=== PATIENT | male | born 1950 | race Caucasian/White ===

== ENCOUNTER → 2017-12-26 | Outpatient (REF) | payer MEDICARE, OTHER ==
[2017-12-26 11:44] LABS: HEMATOCRIT 44.4 % (42.0-52.0); HEMOGLOBIN 14.8 g/dl (13.5-17.5); MEAN CORPUSCULAR HEMOGLOBIN 29.2 pg (27.0-33.0); MEAN CORPUSCULAR HGB CONC 33.3 g/dl (32.0-36.5); MEAN CORPUSCULAR VOLUME 87.6 fl (80.0-96.0); PLATELET COUNT, AUTOMATED 155 10^3/uL (150-450); RED BLOOD COUNT 5.07 10^6/uL (4.30-6.10); RED CELL DISTRIBUTION WIDTH 12.9 % (11.5-14.5); WHITE BLOOD COUNT 8.2 10^3/uL (4.0-10.0)
[2017-12-26 13:06] LABS: ALBUMIN 3.7 GM/DL (3.2-5.2); ALBUMIN/GLOBULIN RATIO 0.93 (1.00-1.93); ALKALINE PHOSPHATASE 125 U/L (45-117); ALT/SGPT 47 U/L (12-78); ANION GAP 10 MEQ/L (8-16); AST/SGOT 64 U/L (7-37); BILIRUBIN,TOTAL 0.5 MG/DL (0.2-1.0); BLOOD UREA NITROGEN 18 MG/DL (7-18); CALCIUM LEVEL 9.2 MG/DL (8.8-10.2); CARBON DIOXIDE LEVEL 28 MEQ/L (21-32); CHLORIDE LEVEL 104 MEQ/L (98-107); CREATININE FOR GFR 1.21 MG/DL (0.70-1.30); GLOMERULAR FILTRATION RATE > 60.0 (>49); GLUCOSE, FASTING 91 MG/DL (70-100); POTASSIUM SERUM 4.1 MEQ/L (3.5-5.1); SODIUM LEVEL 142 MEQ/L (136-145); TOTAL PROTEIN 7.7 GM/DL (6.4-8.2)
[2017-12-26 14:22] LABS: ESTIMATED AVERAGE GLUCOSE 105 MG/DL (60-110); HEMOGLOBIN A1c 5.3 %
== END ==
LOC: M SFHCCLAY 11:36
DX: Q21.1 Atrial septal defect (principal); I48.0 Paroxysmal atrial fibrillation; I83.029 Varicose veins of left lower extremity with ulcer of unspecified site; K76.89 Other specified diseases of liver
CPT/HCPCS: 84443

== ENCOUNTER → 2018-08-08 | Outpatient (REF) | payer MEDICARE, OTHER ==
[2018-08-08 16:40] LABS: HEMATOCRIT 44.4 % (42.0-52.0); HEMOGLOBIN 14.6 g/dl (13.5-17.5); MEAN CORPUSCULAR HEMOGLOBIN 29.5 pg (27.0-33.0); MEAN CORPUSCULAR HGB CONC 32.9 g/dl (32.0-36.5); MEAN CORPUSCULAR VOLUME 89.7 fl (80.0-96.0); PLATELET COUNT, AUTOMATED 155 10^3/uL (150-450); RED BLOOD COUNT 4.95 10^6/uL (4.30-6.10); WHITE BLOOD COUNT 7.4 10^3/uL (4.0-10.0)
[2018-08-08 17:14] LABS: BLOOD UREA NITROGEN 19 MG/DL (7-18); CALCIUM LEVEL 8.8 MG/DL (8.8-10.2); CARBON DIOXIDE LEVEL 32 MEQ/L (21-32); CHLORIDE LEVEL 104 MEQ/L (98-107); CHOLESTEROL LEVEL 140 MG/DL (<200); CHOLESTEROL RISK RATIO 4.242 (<5); CREATININE FOR GFR 1.13 MG/DL (0.70-1.30); FREE T4 1.33 NG/DL (0.76-1.46); GLOMERULAR FILTRATION RATE > 60.0 (>49); GLUCOSE, FASTING 84 MG/DL (70-100); HDL CHOLESTEROL 33 MG/DL (>40); LDL CHOLESTEROL 63 MG/DL (<100); NON-HDL-C 107 MG/DL; POTASSIUM SERUM 3.8 MEQ/L (3.5-5.1); SODIUM LEVEL 144 MEQ/L (136-145); TRIGLYCERIDES LEVEL 220 MG/DL (<150)
== END ==
LOC: M SFHCCLAY 13:34
PROVIDERS: ATTEND Family Medicine
DX: I48.0 Paroxysmal atrial fibrillation (principal); J45.909 Unspecified asthma, uncomplicated; Z98.890 Other specified postprocedural states; K76.89 Other specified diseases of liver; I10 Essential (primary) hypertension; M10.9 Gout, unspecified; I69.30 Unspecified sequelae of cerebral infarction; I87.2 Venous insufficiency (chronic) (peripheral)
CPT/HCPCS: 80048; 80061; 84439; 84443; 85027; G0463

== ENCOUNTER → 2019-01-20 | Outpatient (REF) | payer MEDICARE, OTHER ==
[2019-01-20 20:33] LABS: ALBUMIN 3.5 GM/DL (3.2-5.2); BILIRUBIN,DIRECT 0.1 MG/DL (0.0-0.2); BILIRUBIN,TOTAL 0.4 MG/DL (0.2-1.0); TOTAL PROTEIN 7.3 GM/DL (6.4-8.2)
== END ==
LOC: M SFHCCLAY 12:39
PROVIDERS: ATTEND Family Medicine
DX: K76.89 Other specified diseases of liver (principal); I48.0 Paroxysmal atrial fibrillation; Z12.5 Encounter for screening for malignant neoplasm of prostate
CPT/HCPCS: 80076; 90670; G0009; G0103

== ENCOUNTER → 2020-01-21 | Outpatient (REF) | payer MEDICARE, OTHER ==
[~2020-01-21] MED LIST: ALFU10TA3 PO; ALLO100T PO; ASPI81CH33 PO; ASPI81TA26 PO; BISO5TAB14 PO; ELIQ5TAB PO; FELO10TA28 PO; HYDR25TAB PO; LEVO750T13 PO; LEXA1TAB PO; OMEP-218 PO; SIMV20TA22 PO; SYMB16INH INH; VESI5TAB2 PO; [UNRECOGNIZED DRUG - CODE] PO
[2020-01-21 18:58] LABS: HEMATOCRIT 44.1 % (42.0-52.0); HEMOGLOBIN 13.9 g/dl (13.5-17.5); MEAN CORPUSCULAR HEMOGLOBIN 27.5 pg (27.0-33.0); MEAN CORPUSCULAR HGB CONC 31.5 g/dl (32.0-36.5); MEAN CORPUSCULAR VOLUME 87.3 fl (80.0-96.0); PLATELET COUNT, AUTOMATED 177 10^3/uL (150-450); RED BLOOD COUNT 5.05 10^6/uL (4.30-6.10)
[2020-01-21 19:09] LABS: ALBUMIN 3.5 GM/DL (3.2-5.2); ALT/SGPT 37 U/L (12-78); BILIRUBIN,TOTAL 0.5 MG/DL (0.2-1.0); BLOOD UREA NITROGEN 16 MG/DL (7-18); CALCIUM LEVEL 8.5 MG/DL (8.8-10.2); CARBON DIOXIDE LEVEL 32 MEQ/L (21-32); CHLORIDE LEVEL 102 MEQ/L (98-107); CHOLESTEROL LEVEL 134 MG/DL (<200); CREATININE FOR GFR 1.18 MG/DL (0.70-1.30); GLOMERULAR FILTRATION RATE > 60.0 (>49); GLUCOSE, FASTING 99 MG/DL (70-100); HDL CHOLESTEROL 33 MG/DL (>40); LDL CHOLESTEROL 68 MG/DL (<100); NON-HDL-C 101 MG/DL; POTASSIUM SERUM 3.4 MEQ/L (3.5-5.1); SODIUM LEVEL 139 MEQ/L (136-145); TOTAL PROTEIN 7.9 GM/DL (6.4-8.2); TRIGLYCERIDES LEVEL 163 MG/DL (<150)
== END ==
LOC: M LABDRAWC 13:45
PROVIDERS: ATTEND Family Medicine
DX: I69.30 Unspecified sequelae of cerebral infarction (principal); I10 Essential (primary) hypertension; R76.0 Raised antibody titer

== ENCOUNTER 2020-03-11 15:37 | Inpatient (IN) | payer MEDICARE, OTHER ==
[~2020-03-11] VITALS: Ht 189.2 cm; Wt 125.1 kg
--- NOTE | 2020-03-11 17:15 | REP ---
INDICATION: DYSPNEA/COUGH COMPARISON: None. TECHNIQUE: Portable semi upright AP view FINDINGS: Evaluation is limited by positioning, poor inspiratory effort, and underpenetration. Cardiomegaly cannot be excluded along with left lower lobe atelectasis. No obvious effusion. No pneumothorax. IMPRESSION: Limited examination cannot exclude left lower lobe atelectasis. <Electronically signed by Rupert Laird > 03/11/20 [id number]
[2020-03-11 18:16] LABS: BASO % 0.2 % (0.0-1.0); EOS % 0.1 % (0.0-3.0); HEMATOCRIT 39.2 % (42.0-52.0); HEMOGLOBIN 12.3 g/dl (13.5-17.5); LYMPH % 5.5 % (24.0-44.0); MEAN CORPUSCULAR HEMOGLOBIN 26.9 pg (27.0-33.0); MEAN CORPUSCULAR HGB CONC 31.4 g/dl (32.0-36.5); MEAN CORPUSCULAR VOLUME 85.8 fl (80.0-96.0); MONO # 1.2 10^3/uL (0.0-0.8); MONO % 6.5 % (0.0-5.0); NEUTROPHILS # 15.6 10^3/uL (1.5-8.5); NEUTROPHILS % 86.9 % (36.0-66.0); PLATELET COUNT, AUTOMATED 155 10^3/uL (150-450); RED BLOOD COUNT 4.57 10^6/uL (4.30-6.10); WHITE BLOOD COUNT 17.9 10^3/uL (4.0-10.0)
[2020-03-11] MEDS ORDERED: LIDOCAINE 2% 5ML JELLY UROJET TOP ONE (18:30)
[2020-03-11] MEDS ORDERED: ALFU10TA3 PO (18:33)
[2020-03-11] MEDS ORDERED: HYDR25TAB PO (18:33)
[2020-03-11] MEDS ORDERED: ALLO100T PO (18:33)
[2020-03-11] MEDS ORDERED: BISO5TAB14 PO (18:33)
[2020-03-11] MEDS ORDERED: OMEP-218 PO (18:33)
[2020-03-11] MEDS ORDERED: [UNRECOGNIZED DRUG - CODE] PO (18:33)
[2020-03-11] MEDS ORDERED: VESI5TAB2 PO (18:35)
[2020-03-11] MEDS ORDERED: ELIQ5TAB PO (18:35)
[2020-03-11] MEDS ORDERED: SIMV20TA22 PO (18:35)
[2020-03-11] MEDS ORDERED: ASPI81CH33 PO (18:35)
[2020-03-11] MEDS ORDERED: SYMB16INH INH (18:35)
[2020-03-11] MEDS ORDERED: LEXA1TAB PO (18:35)
[2020-03-11 18:48] LABS: ALBUMIN 3.2 GM/DL (3.2-5.2); ALT/SGPT 25 U/L (12-78); BILIRUBIN,DIRECT 0.2 MG/DL (0.0-0.2); BILIRUBIN,TOTAL 0.7 MG/DL (0.2-1.0); BLOOD UREA NITROGEN 19 MG/DL (7-18); CALCIUM LEVEL 8.4 MG/DL (8.8-10.2); CARBON DIOXIDE LEVEL 30 MEQ/L (21-32); CHLORIDE LEVEL 104 MEQ/L (98-107); CK-MB VALUE MASS < 1.0 NG/ML (<3.6); CPK CREATINE PHOSPHOKINASE 104 U/L (39-308); CREATININE FOR GFR 1.28 MG/DL (0.70-1.30); GLOMERULAR FILTRATION RATE 59.3 (>49); GLUCOSE, FASTING 110 MG/DL (70-100); MB/CK RELATIVE INDEX 0.96 (< OR =4); NT-PRO BNP 241 PG/ML (<125); POTASSIUM SERUM 3.4 MEQ/L (3.5-5.1); SODIUM LEVEL 138 MEQ/L (136-145); THYROID STIMULATING HORMONE 0.794 uIU/ML (0.358-3.740); THYROXINE (T4) 10.8 UG/DL (4.5-12.0); TOTAL PROTEIN 7.2 GM/DL (6.4-8.2); TROPONIN I < 0.02 NG/ML (< 0.10)
[2020-03-11] MEDS ORDERED: ACETAMINOPHEN TAB 650MG DOSE (2X325MG) PO ONE (19:30)
--- NOTE | 2020-03-11 20:38 | ECGEPIP ---
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
[2020-03-11] MEDS ORDERED: cefTRIAXone SOD 2 GM in D5W MINI-BAG PLUS 50 ML IV ONE (22:00)
--- NOTE | 2020-03-11 22:09 | HPEPDOC ---
[facility] Medical History & Physical Date of Admission Mar 11, 2020 Date of Service: Mar 11, 2020 Primary Care Physician: Eh Pang MD Attending Physician: GINI SILVEIRA MD History and Physical TIME OF SERVICE: 11:30 PM CHIEF COMPLAINT: Weakness HISTORY OF PRESENT ILLNESS: This 69 year old gentleman presented with complaints of weakness that began last night. He also noticed that he was feeling very thirsty, had a weak urinary stream, had a poor appetite, and had a fever as high as 102. He denied having abdominal pain, back pain, chills, nausea, vomiting, diarrhea, change in the color or the smell of his urine. He has had urinary tract infections 5 times in the past that presented with similar symptoms as those that he has today. REVIEW OF SYSTEMS: 12 point review of systems negative except as listed in HPI PAST MEDICAL/ SURGICAL HISTORY: Atrial fibrillation status post ablation COPD / asthma Chronic hypertension Dyslipidemia History of right MCA stroke PRASHANT unable to tolerate CPAP PLEITEZ Gout Anxiety Cholecystectomy SOCIAL HISTORY: He doesn't smoke, drink, or use recreational drugs FAMILY HISTORY: CVA Hypertension ALLERGIES: Please see below. HOME MEDICATIONS: Please see below. PHYSICAL EXAMINATION: Vital Signs Date Time Temp Pulse Resp B/P (MAP) Pulse Ox O2 Delivery O2 Flow Rate FiO2 03/11/20 15:45 101.1 88 16 95 Room Air 03/11/20 16:18 107/58 (74) GEN: well-nourished / well developed/ NAD INTEGUMENT: not flushed/ not jaundice / has multiple vasculitic lesions on the anterior part of both lower legs / onychomycosis HEENT: lips acyanotic /mucus membranes moist and pink / sclera anicteric CVS: RRR/NMRG/ radial pulses intact LUNGS: able to speak full sentences without stopping to take a breath / no coughing / breath sounds deminished / on room air ABDOMEN: Contour ( obese) / soft & not tender with palpation MSK/EXTREMITIES: NCAT / range of motion intact in all 4 extremities NEURO: CN 2-12 are grossly intact / speech is not dysarthric PSYCH: alert and oriented to person place and time/ able to understand and follow all commands LABORATORY DATA: 03/11/20 17:56 03/11/20 17:56: Immature Granulocyte % (Auto) 0.8, Neutrophils (%) (Auto) 86.9H, Lymphocytes (%) (Auto) 5.5L, Monocytes (%) (Auto) 6.5H, Eosinophils (%) (Auto) 0.1, Basophils (%) (Auto) 0.2, Neutrophils # (Auto) 15.6H, Lymphocytes # (Auto) 1.0L, Monocytes # (Auto) 1.2H, Eosinophils # (Auto) 0.0, Basophils # (Auto) 0.0, Nucleated Red Blood Cells % (auto) 0.0, Anion Gap 4L, Glomerular Filtration Rate 59.3, Calcium Level 8.4L, Total Bilirubin 0.7, Direct Bilirubin 0.2, Aspartate Amino Transf (AST/SGOT) 31, Alanine Aminotransferase (ALT/SGPT) 25, Alkaline Phosphatase 162H, Total Creatine Kinase 104, Creatine Kinase MB < 1.0, Creatine Kinase MB Relative Index 0.96, Troponin I < 0.02, ID-Hzn-W-Type Natriuretic Peptide 241H, Total Protein 7.2, Albumin 3.2, Albumin/Globulin Ratio 0.8, Thyroid Stimulating Hormone (TSH) 0.794, Thyroxine (T4) 10.8 03/11/20 19:27: Urine Color PRISCILLA, Urine Appearance CLOUDYH, Urine pH 5.0, Urine Specific Gravi ty 1.028, Urine Protein 2+H, Urine Glucose (UA) NEGATIVE, Urine Ketones NEGATIVE, Urine Blood 2+H, Urine Nitrite POSITIVEH, Urine Bilirubin NEGATIVE, Urine Urobilinogen 0.2, Urine Leukocyte Esterase 2+H, Urine WBC (Auto) TNTCH, Urine RBC (Auto) 36H, Urine Hyaline Casts (Auto) 0, Urine Bacteria (Auto) 2+H, Urine Squamous Epithelial Cells 1, Urine Mucus (Auto) MODERATE, Urine Sperm (Auto) IMAGING: Chest xray "IMPRESSION: Limited examination cannot exclude left lower lobe atelectasis." CT abd/pelvis "IMPRESSION: 1. Cystitis. 2. Inflammatory fat stranding around the enlarged prostate and seminal vesicles, which may represent prostatitis and seminal vesiculitis. 3. 3.3 cm indeterminate lesion arising from the anterior cortex of the midpole of the right kidney. Further evaluation with a renal ultrasound is suggested, which can be performed on a nonemergent basis. 4. Moderate amount of formed stool in the colon. No bowel obstruction.5. No stones in the kidneys, ureters, or urinary bladder. No hydronephrosis or hydroureter. " MICROBIOLOGY: 03/11/20 Urine Culture, Received Pending 03/11/20 Gram Stain, Received Pending 03/11/20 Genital Culture, Received Pending 03/11/20 Blood Culture, Received Pending 03/11/20 Blood Culture, Received Pending ASSESSMENT: is a 69-year-old with a history of atrial fibrillation, COPD/asthma, HTN, PLEITEZ, Gout, and CVA who resented with complaints of weakness, thirst, and abnormal urinary stream and will be admitted for management of sepsis secondary to cystitis/prostatitis. PLAN: 1. Sepsis 2/2 cystitis/prostatitis SIRS criteria include: Temp >101 / WBC >12 Lactic acid >2 QSOFA score <2 = not high risk UA and CT abd/pelvis results as above Plan: admit medical floor / c/w Rocephin pending blood & urine Cx / c/w IVF / Acetaminophen PRN for fever / target MAP at least 65 to 70 mmHG / f/u Is and Os with target UOP of at least 0.5 ml/kg H / target serum glucose 140-180 while ac utely ill 2. 3.3 cm right renal mass Plan: f/u renal US / pending results the day time team can refer the pt to Urology on an out pt basis 3. Normocytic Acute Anemia Possibly 2/2 bone marrow suppression due to sepsis or malignancy Plan: fu/ retic #, iron studies and stool occult / may need out pt referral to GI for c-scope if not done recently 4. Hypokalemia Likely due to poor PO intake Plan: replete K and f/u Mg 5. COPD / asthma He denies feeling more short of breath than usual Plan: Symbicort 6. Atrial fibrillation Plan: apixaban 7. Chronic hypertension Plan: bisoprolol, calcium channel baldomero, HCTZ 8. hx of CVA / Dyslipidemia Plan: ASA & statin 9. Gout Plan: allopurinol 10. Anxiety Plan: Lexapro 11. Obesity BMI 33.0 complicates care Plan: f/u A1C / f/u w PCP to discuss diet and exercise recommendations on a out pt basis DVT PROPHYLAXIS: n/a he is on a NOAC DISPOSITION: home after more than 2 midnight's stay Home Medications Scheduled Alfuzosin HCl (Alfuzosin HCl ER) 10 Mg Tab.er.24h, 10 MG PO DAILY Allopurinol (Allopurinol) 100 Mg Tablet, 100 MG PO DAILY Apixaban (Eliquis) 5 Mg Tablet, 5 MG PO BID Aspirin (Aspirin EC) 81 Mg Tablet.dr, 81 MG PO DAILY Bisoprolol Fumarate (Bisoprolol Fumarate) 5 Mg Tablet, 5 MG PO DAILY Budesonide/Formoterol (Symbicort 160-4.5 Mcg Inhaler) 6 Gm Hfa.aer.ad, 2 PUFF INH BID Escitalopram Oxalate (Lexapro) 10 Mg Tablet, 10 MG PO DAILY Felodipine (Felodipine ER) 10 Mg Tab.er.24h, 10 MG PO DAILY Hydrochlorothiazide (Hydrochlorothiazide) 25 Mg Tablet, 25 MG PO DAILY Omeprazole (Omeprazole) 20 Mg Capsule.dr, 20 MG PO DAILY Simvastatin (Simvastatin) 20 Mg Tablet, 20 MG PO QHS Solifenacin Succinate (Vesicare) 5 Mg Tablet, 5 MG PO DAILY Allergies Coded Allergies: No Known Allergies (Unverified , 03/11/20) A-FIB/CHADSVASC A-FIB History Current/History of A-Fib/PAF?: Yes Current PO Anticoag Therapy: Yes GINI SILVEIRA MD Mar 11, 2020 22:09
[2020-03-11] MEDS ORDERED: MOM 30ML SUSPENSION UDC PO PRN (22:15)
[2020-03-11] MEDS ORDERED: MAALOX 30 ML SUSP *UDC PO PRN (22:15)
[2020-03-11] MEDS ORDERED: POTASSIUM CHLORIDE 10% LIQ 20 MEQ/15 ML UDC PO ONE (22:15)
[2020-03-11 22:17] LABS: MAGNESIUM LEVEL 1.8 MG/DL (1.8-2.4)
[2020-03-11] MEDS ORDERED: FELO10TA28 PO (22:27)
[2020-03-11] MEDS ORDERED: ASPI81TA26 PO (22:27)
[2020-03-11 22:42] LABS: FERRITIN 17 NG/ML (26-388); IRON (FE) 15 UG/DL (65-175); PERCENT SATURATION 4.6 % (19.7-50.0); TOTAL IRON BINDING CAPACITY 325 UG/DL (250-450)
[2020-03-11] MEDS: NS 1,000 ML IV SCH (22:43)
--- NOTE | 2020-03-11 22:44 | REPVR ---
PROCEDURE INFORMATION: Exam: CT Abdomen And Pelvis Without Contrast Exam date and time: 03/11/2020 9:59 PM Age: 69 years old Clinical indication: Urosepsis; Additional info: R/O obstruction TECHNIQUE: Imaging protocol: Computed tomography of the abdomen and pelvis without contrast. Radiation optimization: All CT scans at this facility use at least one of these dose optimization techniques: automated exposure control; mA and/or kV adjustment per patient size (includes targeted exams where dose is matched to clinical indication); or iterative reconstruction. COMPARISON: No relevant prior studies available. FINDINGS: Lungs: There is atelectasis in the right lower lobe. The lungs were not fully imaged. Heart: No cardiomegaly. There is a small water density pericardial effusion. Liver: Unremarkable. No liver lesion is identified. The contour of the liver is smooth. No hepatomegaly is noted. Gallbladder and bile ducts: There has been a cholecystectomy. There is no fluid collection in the gallbladder fossa. No dilation of the bile ducts is noted. No calcified stones are seen in the common bile duct. Pancreas: Unremarkable. No dilation of the main pancreatic duct is noted. There is no inflammatory fat stranding around the pancreas to suggest acute pancreatitis. Spleen: Unremarkable. No splenomegaly is noted. Adrenals: Normal. No adrenal mass is noted. Kidneys and ureters: There is a 3.3 cm oval-shaped lesion arising from the anterior cortex of the midpole of the right kidney, which measures approximately 31 Hounsfield units and is not fully characterized in this study (image 77 of the axial series 201). There are several benign-appearing cysts in both kidneys, the largest in the inferior pole of the left kidney measuring 8.5 cm. No stones are noted in the kidneys or ureters. There is no hydronephrosis or hydroureter or perinephric fluid collection. Stomach and bowel: The stomach and small bowel are unremarkable. There is no evidence for a bowel obstruction, diverticulosis, diverticulitis, colitis, perforated viscus, pneumatosis intestinalis, intussusception, or volvulus. There is a moderate amount of formed stool in the colon. Appendix: Normal. There is no evidence for appendicitis. Intraperitoneal space: No free air. No ascites. No asbcess. Retroperitoneal space: No retroperitoneal fluid collection. Vasculature: There is no abdominal aortic aneurysm or intramural hematoma. There are mild atherosclerotic calcifications. Lymph nodes: No enlarged lymph nodes. No enlarged lymph nodes. Urinary bladder: There is thickening of the wall of the partially distended urinary bladder and inflammatory fat stranding around the bladder, which is compatible with cystitis. No stones are noted in the urinary bladder. Reproductive: The prostate gland is enlarged and contains calcification. The prostate gland measures 6.4 cm x 6.8 cm x 6.8 cm and the volume of the prostate gland is increased and measures 154.8 mL. There is inflammatory fat stranding around the prostate gland and seminal vesicles, which may indicate prostatitis and seminal vesiculitis. Bones/joints: There is no fracture or dislocation. No suspicious osteolytic or osteoblastic lesion. There are degenerative changes involving the lower lumbar spine. Soft tissues: There is periumbilical subcutaneous edema around a tiny fat containing umbilical hernia. No drainable soft tissue fluid collection is noted. IMPRESSION: 1. Cystitis. 2. Inflammatory fat stranding around the enlarged prostate and seminal vesicles, which may represent prostatitis and seminal vesiculitis. 3. 3.3 cm indeterminate lesion arising from the anterior cortex of the midpole of the right kidney. Further evaluation with a renal ultrasound is suggested, which can be performed on a nonemergent basis. 4. Moderate amount of formed stool in the colon. No bowel obstruction. 5. No stones in the kidneys, ureters, or urinary bladder. No hydronephrosis or hydroureter. Electronically signed by: Adolfo Simon On 03/11/2020 22:44:34 PM
[2020-03-12 00:38] VITALS: BP 152/73
[2020-03-12] MEDS: ACETAMINOPHEN TAB 650MG DOSE (2X325MG) PO PRN (02:44)
[2020-03-12 04:05] VITALS: BP 111/51
[2020-03-12 06:18] LABS: HEMATOCRIT 34.8 % (42.0-52.0); HEMOGLOBIN 11.1 g/dl (13.5-17.5); MEAN CORPUSCULAR HEMOGLOBIN 27.1 pg (27.0-33.0); MEAN CORPUSCULAR HGB CONC 31.9 g/dl (32.0-36.5); MEAN CORPUSCULAR VOLUME 84.9 fl (80.0-96.0); PLATELET COUNT, AUTOMATED 127 10^3/uL (150-450); WHITE BLOOD COUNT 15.4 10^3/uL (4.0-10.0)
[2020-03-12] MEDS: SIMVASTATIN 20 MG TAB PO SCH ×2 (06:19→20:59)
[2020-03-12 06:48] LABS: BLOOD UREA NITROGEN 18 MG/DL (7-18); CALCIUM LEVEL 8.4 MG/DL (8.8-10.2); CARBON DIOXIDE LEVEL 30 MEQ/L (21-32); CHLORIDE LEVEL 102 MEQ/L (98-107); CREATININE FOR GFR 1.17 MG/DL (0.70-1.30); GLOMERULAR FILTRATION RATE > 60.0 (>49); GLUCOSE, FASTING 125 MG/DL (70-100); POTASSIUM SERUM 3.1 MEQ/L (3.5-5.1); SODIUM LEVEL 137 MEQ/L (136-145)
--- NOTE | 2020-03-12 08:24 | REP ---
INDICATION: f/u on 3.3 cm right renal mass cancer? COMPARISON: CT dated 03/11/2020. Ultrasound dated 04/22/2006. TECHNIQUE: Real time gibbons scale ultrasound examination using curved array transducer. FINDINGS: Evaluation is significantly limited due to body habitus and technical factors. The right kidney measures 15.9 x 6.4 x 6.3 cm and demonstrates increased central sinus fat consistent with age-related renal changes. There is a 2.0 x 1.8 x 1.6 cm simple cyst along the upper pole and a 5.3 x 4.3 x 4.3 cm anechoic lesion likely cyst along the lower pole. These findings are compatible with cysts identified on recent CT, but the suspected mass along the anterior margin of the right kidney on CT examination is not identifiable by ultrasound. The left kidney measures 12.5 x 3.7 x 6.3 cm and demonstrates increased central sinus fat consistent with age-related renal changes. There is a 2.5 x 2.1 x 2.2 cm upper pole anechoic lesion likely cyst and a 0.0 x 8.6 x 8.1 cm simple appearing lower pole cyst. Bladder is grossly unremarkable. IMPRESSION: 1. Kidneys demonstrate age-related renal changes and bilateral cysts. The suspicious lesion along the anterior margin of the right kidney based on recent CT is not identifiable by ultrasound. Pre and postcontrast CT of the abdomen is recommended for further investigation. <Electronically signed by Rupert Laird > 03/12/20 [id number]
[2020-03-12] MEDS: OMEPRAZOLE 20 MG CAP PO SCH (08:29)
[2020-03-12] MEDS: ASPIRIN 81 MG ENTERIC TAB PO SCH (08:31)
[2020-03-12] MEDS: bisoproloL fumarate 5 MG TAB PO SCH (08:31)
[2020-03-12] MEDS: TAMSULOSIN 0.4 MG CAP PO SCH (08:31)
[2020-03-12] MEDS: ESCITALOPRAM OXALATE 10 MG TAB (LEXAPRO) PO SCH (08:31)
[2020-03-12] MEDS: APIXABAN 5 MG TAB (ELIQUIS) PO SCH ×2 (08:31→20:59)
[2020-03-12] MEDS: SOLIFENACIN 5 MG TAB PO SCH (08:32)
[2020-03-12] MEDS: amLODIPine 10 MG TAB PO SCH (08:33)
[2020-03-12] MEDS: hydroCHLOROthiazide 25 MG TAB PO SCH (08:33)
[2020-03-12] MEDS: allopurinoL 100 MG TAB PO SCH (08:33)
[2020-03-12] MEDS: SYMBICORT 160/4.5MCG INHALER 6GM INH SCH ×2 (08:45→20:09)
[2020-03-12] MEDS ORDERED: PREVNAR 13 VACCINE SYRINGE IM ONE (09:00)
[2020-03-12] MEDS ORDERED: FLUBLOK(EGG FREE)(QUAD)INFLUENZA VACC 0.5ML SYRINGE 18YRS & OLDER IM ONE (09:00)
[2020-03-12] MEDS ORDERED: POTASSIUM CHLORIDE 10 MEQ SR TABLET PO ONE (09:00)
[2020-03-12 14:00] VITALS: BP 123/63
[2020-03-12] MEDS: NS 1,000 ML IV SCH (17:44)
--- NOTE | 2020-03-12 19:41 | IPNPDOC ---
Subjective Date Seen The patient was seen on 03/12/20. Subjective Chief Complaint/HPI Mr. Metz is a 69 year old male with anxiety here with sepsis secondary to UTI. Today he was anxious to leave. He was concerned that his insurance would not cover his stay. I spoke with senior production planner/PFS that his stay should be covered. Otherwise, he had a fever of 102.4 this morning. Denies chest pain, dyspnea, or abdominal pain Constitutional: Reports: Fever Pulmonary: Denies: Dyspnea Cardiovascular: Denies: Chest Pain Gastrointestinal: Denies: Abdominal Pain Objective Physical Examination General Exam: Positive: Alert, No Acute Distress Eye Exam: Negative: Sclera icteric Neck Exam: Positive: Supple Chest Exam: Positive: Clear to auscultation Heart Exam: Positive: Rate Normal, Regular Rhythm Abdomen Exam: Positive: Normal bowel sounds, Soft Extremity Exam: Positive: Edema Neuro Exam: Positive: Normal Gait, Normal Speech Psych Exam: Positive: Anxiety Assessment /Plan Assessment Mr. Metz is a 69 year old male here with sepsis secondary secondary to UTI. He will receive fluids and empiric treatment for UTI. Pending urine culture results. Plan/VTE VTE Prophylaxis Ordered?: Yes Plan 1. Sepsis 2/2 cystitis/prostatitis -Meets 2/4 SIRS criteria with elevated lactic acid -Secondary to UTI -On IVF and Ceftriaxone 2. UTI -UA positive for nitrites, leukocytes, and bacteria -Empiric ceftriaxone -Pending urine culture results 3. Right renal mass -3.3cm seen on renal US -Patient will need to see urology on outpatient basis 4. Normocytic acute anemia -Iron studies suggestive of iron deficiency -Pending fecal occult -Patient may need to be referred to GI for colonoscopy 5. Hypokalemia -Replete K -Mag is 1.8 6. COPD/Asthma -Symbicort 7. Atrial fibrillation -Apixaban -Bisoprolol 8. Chronic hypertension -bisoprolol, HCTZ 9. hx of CVA / Dyslipidemia -ASA & statin 10. Gout -allopurinol 11. Anxiety -Lexapro 12. Obesity -BMI 33.0 -Patient will need to discuss weight loss plan with PCP 13. DVT ppx -Apixaban VS, I&O, 24H, Fishbone Vital Signs/I&O Vital Signs Date Time Temp Pulse Resp B/P (MAP) Pulse Ox O2 Delivery O2 Flow Rate FiO2 03/12/20 14:00 98.4 69 16 123/63 (83) 94 Room Air I&O- Last 24 Hours up to 6 AM 03/12/20 06:00 Intake Total 0 ml Balance 0 ml Laboratory Data 24H LABS Laboratory Tests 2 03/11/20 19:27: Urine Color PRISCILLA, Urine Appearance CLOUDYH, Urine pH 5.0, Urine Specific [place] 1.028, Urine Protein 2+H, Urine Glucose (UA) NEGATIVE, Urine Ketones NEGATIVE, Urine Blood 2+H, Urine Nitrite POSITIVEH, Urine Bilirubin NEGATIVE, Urine Urobilinogen 0.2, Urine Leukocyte Esterase 2+H, Urine WBC (Auto) TNTCH, Urine RBC (Auto) 36H, Urine Hyaline Casts (Auto) 0, Urine Bacteria (Auto) 2+H, Urine Squamous Epithelial Cells 1, Urine Mucus (Auto) MODERATE, Urine Sperm (Auto) 03/11/20 22:25: Lactic Acid Level 1.7 03/12/20 06:04: Nucleated Red Blood Cells % (auto) 0.0, Anion Gap 5L, Glomerular Filtration Rate > 60.0, Estimated Mean Plasma Glucose 126H, Hemoglobin A1c 6.0, Calcium Level 8. 4L CBC/BMP Laboratory Tests 03/12/20 06:04 Microbiology Microbiology 03/11/20 Urine Culture, Received Pending 03/11/20 Gram Stain - Final, Resulted 03/11/20 Genital Culture, Resulted Pending 03/11/20 Blood Culture, Received Pending 03/11/20 Blood Culture - Preliminary, Resulted No growth after 24 hours . All specim... ROCKY VALENTIN DO Mar 12, 2020 19:40
[2020-03-12 20:09] VITALS: BP 108/66
[2020-03-12] MEDS ORDERED: cefTRIAXone SOD 1 GM in D5W MINI-BAG PLUS 50 ML IV SCH (21:00)
[2020-03-13] MEDS: ACETAMINOPHEN TAB 650MG DOSE (2X325MG) PO PRN (03:06)
[2020-03-13 05:36] VITALS: BP 133/65
[2020-03-13 05:54] LABS: HEMATOCRIT 33.1 % (42.0-52.0); HEMOGLOBIN 10.5 g/dl (13.5-17.5); MEAN CORPUSCULAR HEMOGLOBIN 27.2 pg (27.0-33.0); MEAN CORPUSCULAR HGB CONC 31.7 g/dl (32.0-36.5); MEAN CORPUSCULAR VOLUME 85.8 fl (80.0-96.0); PLATELET COUNT, AUTOMATED 141 10^3/uL (150-450); RED BLOOD COUNT 3.86 10^6/uL (4.30-6.10); WHITE BLOOD COUNT 11.6 10^3/uL (4.0-10.0)
[2020-03-13 06:16] LABS: BLOOD UREA NITROGEN 15 MG/DL (7-18); CALCIUM LEVEL 7.8 MG/DL (8.8-10.2); CARBON DIOXIDE LEVEL 29 MEQ/L (21-32); CHLORIDE LEVEL 104 MEQ/L (98-107); CREATININE FOR GFR 1.07 MG/DL (0.70-1.30); GLOMERULAR FILTRATION RATE > 60.0 (>49); GLUCOSE, FASTING 80 MG/DL (70-100); POTASSIUM SERUM 3.1 MEQ/L (3.5-5.1); SODIUM LEVEL 140 MEQ/L (136-145)
[2020-03-13] MEDS: SYMBICORT 160/4.5MCG INHALER 6GM INH SCH (08:05)
[2020-03-13] MEDS: OMEPRAZOLE 20 MG CAP PO SCH (08:56)
[2020-03-13] MEDS: APIXABAN 5 MG TAB (ELIQUIS) PO SCH (08:56)
[2020-03-13] MEDS: TAMSULOSIN 0.4 MG CAP PO SCH (08:57)
[2020-03-13] MEDS: hydroCHLOROthiazide 25 MG TAB PO SCH (08:57)
[2020-03-13] MEDS: SOLIFENACIN 5 MG TAB PO SCH (08:57)
[2020-03-13] MEDS: ASPIRIN 81 MG ENTERIC TAB PO SCH (08:57)
[2020-03-13] MEDS: allopurinoL 100 MG TAB PO SCH (08:57)
[2020-03-13] MEDS: ESCITALOPRAM OXALATE 10 MG TAB (LEXAPRO) PO SCH (08:57)
[2020-03-13 08:58] VITALS: BP 122/65
[2020-03-13] MEDS: amLODIPine 10 MG TAB PO SCH (08:58)
[2020-03-13] MEDS: bisoproloL fumarate 5 MG TAB PO SCH (08:59)
[2020-03-13 09:00] VITALS: BP 122/65
[2020-03-13] MEDS ORDERED: POTASSIUM CHLORIDE 10 MEQ SR TABLET PO ONE (09:00)
[2020-03-13] MEDS ORDERED: LEVO750T13 PO (11:53)
--- NOTE | 2020-03-13 20:58 | DS.PDOC ---
Discharge Summary General Date of Admission Mar 11, 2020 at 22:03 Date of Discharge Mar 13, 2020 Attending Physician: ROCKY VALENTIN DO Discharge Summary PROCEDURES PERFORMED DURING STAY: None ADMITTING DIAGNOSES: 1. Sepsis 2. UTI 3. Right renal mass 4. Normocytic acute anemia 5. Hypokalemia 6. COPD 7. Atrial fibrillation 8. Chronic hypertension 9. History of of CVA 10. Dyslipidemia 12. Gout 13. Anxiety 14. Obesity DISCHARGE DIAGNOSES: 1. Gram-negative sepsis 2. Escherichia coli UTI 3. Right renal mass 4. Normocytic acute anemia 5. Hypokalemia 6. COPD 7. Atrial fibrillation 8. Chronic hypertension 9. History of of CVA 10. Dyslipidemia 12. Gout 13. Anxiety 14. Obesity COMPLICATIONS/CHIEF COMPLAINT: Sepsis, Uti. HISTORY OF PRESENT ILLNESS: Mr. Metz is a 69 year old gentleman presented with complaints of weakness that began last night. He also noticed that he was f eeling very thirsty, had a weak urinary stream, had a poor appetite, and had a fever as high as 102. He denied having abdominal pain, back pain, chills, nausea, vomiting, diarrhea, change in the color or the smell of his urine. He has had urinary tract infections 5 times in the past that presented with similar symptoms as those that he has today. HOSPITAL COURSE: He did well on IV hydration and Ceftriaxone. Urine cultures grew pansensitive E.coli. He was anxious to go home today. His leukocytes have trending down and he has been afebrile for more than 24 hours. Otherwise, he denies fever/chills, chest pain, dyspnea, abdominal pain, or dysuria. He felt ready and strong enough to go home and was subsequently discharged home. He will need 7 days of antibiotics for complicated UTI. He's had 2 days of antibiotics here. We'll send him home with 5 more days of Levaquin DISCHARGE MEDICATIONS: Please see below. ALLERGIES: Please see below. PHYSICAL EXAMINATION ON DISCHARGE: VITAL SIGNS: Please see below. GENERAL: Comfortable, in no apparent distress. HEENT: Head normocephalic/atraumatic, EOMI, sclera clear. NECK: Supple RESPIRATORY: Lungs clear to auscultation bilaterally, no rales, wheeze or rhonchi. CARDIOVASCULAR: Regular rate and rhythm. ABDOMEN: Soft, nontender, no guarding or rebound tenderness. Normal bowel sounds. MUSCLE SKELETAL: Muscle strength 5/5 in all extremities. NEUROLOGICAL: CN 312 grossly intact, no focal deficits noted. PSYCHOLOGICAL: Normal mood and affect LABORATORY DATA: Please see below. IMAGING: Chest x-ray Limited examination cannot exclude left lower lobe atelectasis. CT of abdomen and pelvis 1. Cystitis. 2. Inflammatory fat stranding around the enlarged prostate and seminal vesicles, which may represent prostatitis and seminal vesiculitis. 3. 3.3 cm indeterminate lesion arising from the anterior cortex of the midpole of the right kidney. Further evaluation with a renal ultrasound is suggested, which can be performed on a nonemergent basis. 4. Moderate amount of formed stool in the colon. No bowel obstruction. 5. No stones in the kidneys, ureters, or urinary bladder. No hydronephrosis or hydroureter. Renal ultrasound 1. Kidneys demonstrate age-related renal changes and bilateral cysts. The suspicious lesion along the anterior margin of the right kidney based on recent CT is not identifiable by ultrasound. Pre and postcontrast CT of the abdomen is recommended for further investigation. PROGNOSIS: Stable ACTIVITY: As tolerated. DIET: As tolerated DISCHARGE PLAN: Home DISPOSITION: Home, Self-Care. DISCHARGE INSTRUCTIONS: 1. Follow-up with your PCP within 5 days. 2. Discuss with your PCP about your 3.3 cm indeterminate lesion on the right kidney. Will need pre-and postcontrast CT of the abdomen for further investigation DISCHARGE CONDITION: Stable Total time spent on discharge planning, discharge summary, and medication reconciliation: 45 minutes Vital Signs/I&Os Vital Signs Date Time Temp Pulse Resp B/P (MAP) Pulse Ox O2 Delivery O2 Flow Rate FiO2 03/13/20 09:00 76 122/65 (84) 03/13/20 05:36 97.7 20 92 Room Air I&O- Last 24 Hours up to 6 AM 03/13/20 05:59 Intake Total 1300 ml Output Total 150 ml Balance 1150 ml Laboratory Data Labs 24H Laboratory Tests 2 03/13/20 05:27: Nucleated Red Blood Cells % (auto) 0.0, Anion Gap 7L, Glomerular Filtration Rate > 60.0, Calcium Level 7.8L CBC/BMP Laboratory Tests 03/13/20 05:27 Microbiology Microbiology 03/11/20 Urine Culture - Final, Complete Escherichia Coli 03/11/20 Gram Stain - Final, Resulted 03/11/20 Genital Culture - Preliminary, Resulted Escherichia Coli 03/11/20 Blood Culture - Preliminary, Resulted No growth after 24 hours . All specim... 03/11/20 Blood Culture - Preliminary, Resulted No Growth after 48 hours. All Specime... Discharge Medications Scheduled Alfuzosin HCl (Alfuzosin HCl ER) 10 Mg Tab.er.24h, 10 MG PO DAILY, (Reported) Allopurinol (Allopurinol) 100 Mg Tablet, 100 MG PO DAILY, (Reported) Apixaban (Eliquis) 5 Mg Tablet, 5 MG PO BID, (Reported) Aspirin (Aspirin EC) 81 Mg Tablet.dr, 81 MG PO DAILY, (Reported) Bisoprolol Fumarate (Bisoprolol Fumarate) 5 Mg Tablet, 5 MG PO DAILY, (Reported) Budesonide/Formoterol (Symbicort 160-4.5 Mcg Inhaler) 6 Gm Hfa.aer.ad, 2 PUFF INH BID, (Reported) Escitalopram Oxalate (Lexapro) 10 Mg Tablet, 10 MG PO DAILY, (Reported) Felodipine (Felodipine ER) 10 Mg Tab.er.24h, 10 MG PO DAILY, (Reported) Hydrochlorothiazide (Hydrochlorothiazide) 25 Mg Tablet, 25 MG PO DAILY, (Reported) Levofloxacin (Levofloxacin) 750 Mg Tablet, 750 MG PO DAILY Omeprazole (Omeprazole) 20 Mg Capsule.dr, 20 MG PO DAILY, (Reported) Simvastatin (Simvastatin) 20 Mg Tablet, 20 MG PO QHS, (Reported) Solifenacin Succinate (Vesicare) 5 Mg Tablet, 5 MG PO DAILY, (Reported) Allergies Coded Allergies: No Known Allergies (Unverified , 03/11/20) ROCKY VALENTIN DO Mar 13, 2020 20:58
== END 2020-03-13 13:15 | disposition home or self-care (01) | DRG 872 ==
LOC: M ED 15:37 → EDBD 15:37 → M ED INP 22:03 → ENRESERV 22:57 → M MS5PR 03-12 00:15
PROVIDERS: ADMIT Internal Medicine; ATTEND Internal Medicine
DX: A41.59 Other Gram-negative sepsis (principal); N39.0 Urinary tract infection, site not specified; N41.9 Inflammatory disease of prostate, unspecified; J44.9 Chronic obstructive pulmonary disease, unspecified; I10 Essential (primary) hypertension; E78.5 Hyperlipidemia, unspecified; G47.33 Obstructive sleep apnea (adult) (pediatric); K75.81 Nonalcoholic steatohepatitis (NASH); B96.20 Unspecified Escherichia coli [E. coli] as the cause of diseases classified elsewhere; M10.9 Gout, unspecified; F41.9 Anxiety disorder, unspecified; Z86.73 Personal history of transient ischemic attack (TIA), and cerebral infarction without residual deficits; Z90.49 Acquired absence of other specified parts of digestive tract; N28.89 Other specified disorders of kidney and ureter; D64.9 Anemia, unspecified; E87.6 Hypokalemia; I48.91 Unspecified atrial fibrillation; E66.9 Obesity, unspecified; Z68.33 Body mass index [BMI] 33.0-33.9, adult; Z79.01 Long term (current) use of anticoagulants; Z79.82 Long term (current) use of aspirin; Z79.899 Other long term (current) drug therapy

== ENCOUNTER → 2021-10-10 | Outpatient (REF) | payer MEDICARE, OTHER ==
[~2021-10-10] MED LIST changes: +HYDR-3490 PO; -HYDR25TAB PO; +OMEP-173 PO; -OMEP-218 PO
[2021-10-10 13:33] LABS: APPEARANCE, URINE HAZY (CLEAR); BACTERIA, URINE AUTO 1+ (NEGATIVE); BILIRUBIN, URINE AUTO NEGATIVE (NEGATIVE); BLOOD, URINE BLOOD NEGATIVE (NEGATIVE); COLOR, URINE YELLOW (YELLOW); GLUCOSE, URINE (UA) AUTO NEGATIVE (NEGATIVE); KETONE, URINE AUTO NEGATIVE (NEGATIVE); LEUKOCYTE ESTERASE, URINE AUTO 1+ (NEGATIVE); MUCUS, URINE LARGE (NEGATIVE); NITRITE, URINE AUTO NEGATIVE (NEGATIVE); PROTEIN, URINE AUTO 1+ mg/dL (NEGATIVE); RBC, URINE AUTO 2 /HPF (0-3); SPECIFIC GRAVITY URINE AUTO 1.024 (1.002-1.035); SQUAMOUS EPITHELIAL CELL UR AU 0 /HPF (0-6); UROBILINOGEN, URINE AUTO 0.2 mg/dL (0.0-2.0); WBC, URINE AUTO 33 /HPF (0-3)
== END ==
LOC: M SMT 12:53
PROVIDERS: ATTEND Nurse Practitioner Women's Health
DX: R97.20 Elevated prostate specific antigen [PSA] (principal); Z79.899 Other long term (current) drug therapy

== ENCOUNTER → 2021-11-09 | Outpatient (REF) | payer MEDICARE, OTHER ==
[2021-11-09 13:41] LABS: APPEARANCE, URINE CLEAR (CLEAR); BACTERIA, URINE AUTO NEGATIVE (NEGATIVE); BILIRUBIN, URINE AUTO NEGATIVE (NEGATIVE); BLOOD, URINE BLOOD NEGATIVE (NEGATIVE); COLOR, URINE YELLOW (YELLOW); GLUCOSE, URINE (UA) AUTO NEGATIVE (NEGATIVE); KETONE, URINE AUTO NEGATIVE (NEGATIVE); LEUKOCYTE ESTERASE, URINE AUTO NEGATIVE (NEGATIVE); MUCUS, URINE SMALL (NEGATIVE); NITRITE, URINE AUTO NEGATIVE (NEGATIVE); PROTEIN, URINE AUTO NEGATIVE (NEGATIVE); RBC, URINE AUTO 1 /HPF (0-3); SPECIFIC GRAVITY URINE AUTO 1.019 (1.002-1.035); SQUAMOUS EPITHELIAL CELL UR AU 0 /HPF (0-6); UROBILINOGEN, URINE AUTO 0.2 mg/dL (0.0-2.0); WBC, URINE AUTO 1 /HPF (0-3)
== END ==
LOC: M SMT 12:43
PROVIDERS: ATTEND Nurse Practitioner Women's Health
DX: N39.0 Urinary tract infection, site not specified (principal)

== ENCOUNTER → 2021-12-22 | Outpatient (CLI) | payer MEDICARE, OTHER ==
[~2021-12-22] MED LIST changes: +LEVO1TAB40 PO; -LEVO750T13 PO; +PROHANCE 279.3MG/ML 15ML VIAL As Ordered ONE
== END ==
LOC: M RAD 15:19
PROVIDERS: ATTEND Nurse Practitioner Women's Health
DX: R97.20 Elevated prostate specific antigen [PSA] (principal)
CPT/HCPCS: 72197; A9576

== ENCOUNTER → 2021-12-28 | Outpatient (REF) | payer MEDICARE, OTHER ==
[~2021-12-28] MED LIST changes: -PROHANCE 279.3MG/ML 15ML VIAL As Ordered ONE
== END ==
LOC: M SMT 08:17
PROVIDERS: ATTEND Urology
DX: C61 Malignant neoplasm of prostate (principal)

== ENCOUNTER → 2022-02-01 | Outpatient (CLI) | payer MEDICARE, OTHER | LOC: M ONCR 10:23 | PROVIDERS: ATTEND General Practice | DX: C61 Malignant neoplasm of prostate (principal); E78.5 Hyperlipidemia, unspecified; I10 Essential (primary) hypertension; J45.909 Unspecified asthma, uncomplicated; K75.81 Nonalcoholic steatohepatitis (NASH); M10.9 Gout, unspecified; N39.498 Other specified urinary incontinence; Z79.01 Long term (current) use of anticoagulants; Z79.51 Long term (current) use of inhaled steroids; Z79.818 Long term (current) use of other agents affecting estrogen receptors and estrogen levels; Z79.82 Long term (current) use of aspirin; Z79.899 Other long term (current) drug therapy; Z86.73 Personal history of transient ischemic attack (TIA), and cerebral infarction without residual deficits; Z98.52 Vasectomy status ==

== ENCOUNTER → 2022-02-13 | Outpatient (REF) | payer MEDICARE, OTHER | LOC: M SFHCCLAY 11:45 | PROVIDERS: ATTEND Physician Assistant | DX: R09.81 Nasal congestion (principal) ==

== ENCOUNTER → 2022-02-22 | Outpatient (CLI) | payer MEDICARE, OTHER ==
[~2022-02-22] VITALS: Ht 188 cm; Wt 122.4 kg
[~2022-02-22] MED LIST changes: +CIPR750T2 PO; +LIDOCAINE 2% MDV 20ML VIAL XX ONE; +LIDOCAINE VISCOUS 2% SOLN 15ML UDC XX ONE; +LORA1TAB4 PO
[2022-02-22 14:45] VITALS: BP 149/91
== END ==
LOC: M ONCR 14:01
PROVIDERS: ATTEND General Practice
DX: C61 Malignant neoplasm of prostate (principal)
CPT/HCPCS: 55874; 55876; A4648; C1889

== ENCOUNTER 2022-03-19 11:46 | Outpatient (RCR) | payer MEDICARE, OTHER ==
[~2022-03-19 11:46] MED LIST changes: -LIDOCAINE 2% MDV 20ML VIAL XX ONE; -LIDOCAINE VISCOUS 2% SOLN 15ML UDC XX ONE
== END 2022-03-19 23:59 | disposition home or self-care (01) ==
LOC: M ONCR 11:46
PROVIDERS: ATTEND General Practice
DX: C61 Malignant neoplasm of prostate (principal)

== ENCOUNTER 2022-04-18 11:44 | Outpatient (RCR) | payer MEDICARE, OTHER | END 2022-04-18 23:59 | disposition home or self-care (01) | LOC: M ONCR 11:44 | PROVIDERS: ATTEND General Practice | DX: C61 Malignant neoplasm of prostate (principal) ==

== ENCOUNTER 2022-04-23 11:40 | Outpatient (RCR) | payer MEDICARE, OTHER | END 2022-05-19 | LOC: M ONCR 11:40 | PROVIDERS: ATTEND General Practice | DX: C61 Malignant neoplasm of prostate (principal) ==

== ENCOUNTER → 2022-07-18 | Outpatient (REF) | payer MEDICARE, OTHER ==
[2022-07-18 17:13] LABS: ALBUMIN 3.4 G/DL (3.2-5.2); ALKALINE PHOSPHATASE 162 U/L (46-116); ALT/SGPT 31 U/L (7.0-40); AST/SGOT 40 U/L (<34); BILIRUBIN,TOTAL 0.4 MG/DL (0.3-1.2); BLOOD UREA NITROGEN 18 MG/DL (9-23); CALCIUM LEVEL 9.7 MG/DL (8.3-10.6); CARBON DIOXIDE LEVEL 34 MMOL/L (20-31); CHLORIDE LEVEL 101 MMOL/L (98-107); CREATININE FOR GFR 1.21 MG/DL (0.70-1.30); FREE T4 1.21 NG/DL (0.89-1.76); GLOMERULAR FILTRATION RATE > 60.0 (>42); GLUCOSE, FASTING 126 MG/DL (74-106); POTASSIUM SERUM 3.8 MMOL/L (3.5-5.1); PROSTATIC SPECIFIC AG MONITOR 0.22 NG/ML (< 4.00); SODIUM LEVEL 142 MMOL/L (136-145); THYROID STIMULATING HORMONE 2.729 uIU/ML (0.55-4.78); TOTAL PROTEIN 6.8 G/DL (5.7-8.2)
[2022-07-18 17:25] LABS: BASO # 0.1 10^3/uL (0.0-0.2); BASO % 0.7 % (0.0-1.0); EOS # 0.2 10^3/uL (0.0-0.5); EOS % 2.8 % (0.0-3.0); HEMATOCRIT 38.5 % (42.0-52.0); HEMOGLOBIN 12.6 g/dl (13.5-17.5); LYMPH # 0.4 10^3/uL (1.5-5.0); LYMPH % 5.7 % (24.0-44.0); MEAN CORPUSCULAR HEMOGLOBIN 31.4 pg (27.0-33.0); MEAN CORPUSCULAR HGB CONC 32.7 g/dl (32.0-36.5); MONO # 0.5 10^3/uL (0.0-0.8); MONO % 7.6 % (2.0-8.0); NEUTROPHILS # 5.8 10^3/uL (1.5-8.5); NEUTROPHILS % 81.8 % (36.0-66.0); PLATELET COUNT, AUTOMATED 140 10^3/uL (150-450); RED BLOOD COUNT 4.01 10^6/uL (4.30-6.10); WHITE BLOOD COUNT 7.1 10^3/uL (4.0-10.0)
[2022-07-18 17:55] LABS: HEMOGLOBIN A1c 5.5 % (4.0-6.0)
== END ==
LOC: M SFHCCLAY 10:22
PROVIDERS: ATTEND Family Medicine
DX: C61 Malignant neoplasm of prostate (principal); I48.0 Paroxysmal atrial fibrillation; I69.30 Unspecified sequelae of cerebral infarction; I10 Essential (primary) hypertension; J45.40 Moderate persistent asthma, uncomplicated; K75.81 Nonalcoholic steatohepatitis (NASH); Z79.899 Other long term (current) drug therapy

== ENCOUNTER → 2022-07-19 | Outpatient (REF) | payer MEDICARE, OTHER | LOC: M SFHCCLAY 17:30 | PROVIDERS: ATTEND Family Medicine | DX: R30.0 Dysuria (principal); C61 Malignant neoplasm of prostate ==

== ENCOUNTER → 2022-07-24 | Outpatient (CLI) | payer MEDICARE, OTHER | LOC: M ONCR 12:49 | PROVIDERS: ATTEND General Practice | DX: C61 Malignant neoplasm of prostate (principal); Z79.01 Long term (current) use of anticoagulants; Z79.51 Long term (current) use of inhaled steroids; Z79.818 Long term (current) use of other agents affecting estrogen receptors and estrogen levels; Z79.82 Long term (current) use of aspirin; Z79.899 Other long term (current) drug therapy; Z92.3 Personal history of irradiation ==

== ENCOUNTER → 2023-01-24 | Outpatient (CLI) | payer MEDICARE, OTHER ==
[~2023-01-24] MED LIST changes: +LORA1TAB23 PO; -LORA1TAB4 PO
[2023-01-24 14:49] LABS: PROSTATIC SPECIFIC AG MONITOR 0.04 NG/ML (< 4.00)
[2023-01-24 15:22] LABS: TESTOSTERONE < 7 NG/DL (241-827)
== END ==
LOC: M ONCR 12:38
PROVIDERS: ATTEND General Practice
DX: C61 Malignant neoplasm of prostate (principal); R32 Unspecified urinary incontinence; Z71.2 Person consulting for explanation of examination or test findings; Z79.01 Long term (current) use of anticoagulants; Z79.51 Long term (current) use of inhaled steroids; Z79.818 Long term (current) use of other agents affecting estrogen receptors and estrogen levels; Z79.82 Long term (current) use of aspirin; Z79.899 Other long term (current) drug therapy; Z92.3 Personal history of irradiation
CPT/HCPCS: 36415; 84153; 84403; G0463

== ENCOUNTER → 2023-04-24 | Outpatient (REF) | payer MEDICARE, OTHER ==
[2023-04-24 18:05] LABS: BASO # 0.1 10^3/uL (0.0-0.2); BASO % 1.1 % (0.0-1.0); EOS # 0.3 10^3/uL (0.0-0.5); EOS % 3.3 % (0.0-3.0); HEMATOCRIT 38.8 % (42.0-52.0); HEMOGLOBIN 12.3 g/dl (13.5-17.5); LYMPH # 0.7 10^3/uL (1.5-5.0); LYMPH % 7.1 % (24.0-44.0); MEAN CORPUSCULAR HEMOGLOBIN 30.7 pg (27.0-33.0); MEAN CORPUSCULAR HGB CONC 31.7 g/dl (32.0-36.5); MEAN CORPUSCULAR VOLUME 96.8 fl (80.0-96.0); MONO # 0.6 10^3/uL (0.0-0.8); MONO % 6.4 % (2.0-8.0); NEUTROPHILS # 7.7 10^3/uL (1.5-8.5); NEUTROPHILS % 77.3 % (36.0-66.0); PLATELET COUNT, AUTOMATED 164 10^3/uL (150-450); RED BLOOD COUNT 4.01 10^6/uL (4.30-6.10)
[2023-04-24 18:34] LABS: ALBUMIN 3.5 G/DL (3.2-5.2); ALKALINE PHOSPHATASE 170 U/L (46-116); ALT/SGPT 23 U/L (7.0-40); AST/SGOT 23 U/L (<34); BILIRUBIN,TOTAL 0.4 MG/DL (0.3-1.2); BLOOD UREA NITROGEN 20 MG/DL (9-23); CALCIUM LEVEL 9.5 MG/DL (8.3-10.6); CARBON DIOXIDE LEVEL 32 MMOL/L (20-31); CHLORIDE LEVEL 104 MMOL/L (98-107); CREATININE FOR GFR 1.19 MG/DL (0.70-1.30); GLOMERULAR FILTRATION RATE > 60.0 (>42); GLUCOSE, FASTING 106 MG/DL (74-106); SODIUM LEVEL 140 MMOL/L (136-145); TOTAL PROTEIN 7.2 G/DL (5.7-8.2)
== END ==
LOC: M LABDRAWC 17:15
PROVIDERS: ATTEND Internal Medicine Cardiovascular Disease
DX: I48.0 Paroxysmal atrial fibrillation (principal)